=== PATIENT | male | born 1965 | race Caucasian/White ===

== ENCOUNTER 2017-03-11 03:34 | Inpatient (IN) | payer OTHER ==
[~2017-03-11] VITALS: Ht 188 cm; Wt 101.4 kg
[2017-03-11] VITALS (14 sets, daily range): BP systolic 125–179; BP diastolic 77–95; PULSE 62–93; RESP 14–25; TEMP 98.2–100.5; O2SAT 92–96
[2017-03-11] MEDS ORDERED: SODIUM CHLOR 0.9% 1000 ML INJ 1,000 ML IV SCH (03:45)
--- NOTE | 2017-03-11 03:52 | PD ---
HPI Chief Complaint: ENT Complaint Time Seen by Provider: 03:45 Travel History International Travel<30 days: No Contact w/Intl Traveler<30days: No Traveled to known affect area: No History of Present Illness HPI 51-year-old male complains of sore throat, difficulty in swallowing. Patient states that he started having sore throat 4 days ago. Patient states that he has increasing pain to the back of the throat and increasing difficulty in swallowing for the past 4 days. Patient denies any fever chills. Patient denies any chest pain or shortness of breath. Patient states that he has history of aneurysms resulting in right-sided facial drooping many years ago. Patient denies any abdominal pain. Patient denies any nausea vomiting diarrhea. Patient was seen at [facility] in [facility]. CT scan of the brain was reported to be normal. CT scan of the neck with IV contrast shows enlargement of the tonsil left greater than right, with peritonsillar abscess. ENT, Dr. Ferraro was contacted and advised patient to be transferred to [facility]. [facility] Past Medical History Hypertension: Yes Tetanus Vaccination: Unknown Influenza Vaccination: No Past Surgical History Other Surgery: Yes (BRAIN ANUERSYM) Social History Alcohol Use: No Tobacco Use: Yes (2PPD) Substance Use: Yes (MARIJUANA) Allergies-Medications (Allergen,Severity, Reaction): Coded Allergies: No Known Allergies (Unverified , 03/11/17) Reported Meds & Prescriptions Reported Meds & Active Scripts Active No Active Prescriptions or Reported Medications Review of Systems General / Constitutional: No: Fever Eyes: No: Visual changes HENT: Positive: Sore Throat, No: Headaches Cardiovascular: No: Chest Pain or Discomfort Respiratory: No: Shortness of Breath Gastrointestinal: No: Abdominal Pain Genitourinary: No: Dysuria Musculoskeletal: No: Pain Skin: No Rash Neurologic: No: Weakness Psychiatric: No: Depression Endocrine: No: Polydipsia Hematologic/Lymphatic: No: Easy Bruising Physical Exam Narrative GENERAL: Well-nourished, well-developed patient. SKIN: Focused skin assessment warm/dry. HEAD: Normocephalic. EYES: No scleral icterus. No injection or drainage. Throat: Soft tissue swelling edema left peritonsillar area. NECK: Supple, trachea midline. No JVD. Patient has left anterior cervical lymphadenopathy. No meningismus CARDIOVASCULAR: Regular rate and rhythm without murmurs, gallops, or rubs. RESPIRATORY: Breath sounds equal bilaterally. No accessory muscle use. GASTROINTESTINAL: Abdomen soft, non-tender, nondistended. MUSCULOSKELETAL: No cyanosis, or edema. BACK: Nontender without obvious deformity. No CVA tenderness. Neurologic exam: Patient has right-sided facial drooping from previous aneurysm problem. Otherwise no obvious focal neurological deficit. Data Data Last Documented VS Vital Signs Date Time Temp Pulse Resp B/P Pulse Ox O2 Delivery O2 Flow Rate FiO2 03/11/17 03:38 98.2 93 18 179/89 96 Orders Electrocardiogram (03/11/17 03:45) Complete Blood Count With Diff (03/11/17 03:45) Basic Metabolic Panel (Bmp) (03/11/17 03:45) Prothrombin Time / Inr (Pt) (03/11/17 03:45) Act Partial Throm Time (Ptt) (03/11/17 03:45) Chest, Single Ap (03/11/17 03:45) Iv Access Insert/Monitor (03/11/17 03:45) Ecg Monitoring (03/11/17 03:45) Oximetry (03/11/17 03:45) Sodium Chlor 0.9% 1000 Ml Inj (Ns 1000 M (03/11/17 03:45) MDM Medical Decision Making Medical Screen Exam Complete: Yes Emergency Medical Condition: Yes Differential Diagnosis Differential diagnosis including tonsillitis, peritonsillar abscess. Narrative Course 51-year-old male with sore throat, difficulty swallowing and peritonsillar abscess. Normal saline solution 1 25 cc an hour. Patient was given Unasyn 3 g IV and Decadron 10 mg IV for [facility]. Diagnosis Primary Impression: Peritonsillar abscess Admitting Information Admitting Physician Requests: Admit Scripts No Active Prescriptions or Reported Meds Stephen Storey MD Mar 11, 2017 03:52
[2017-03-11] MEDS ORDERED: NALOXONE HCL 0.4 MG/ML AMP IV PRN (04:00)
[2017-03-11] MEDS ORDERED: MAGNESIUM HYDROXIDE SUSP 30 ML CUP PO PRN (04:00)
[2017-03-11] MEDS ORDERED: ONDANSETRON HCL 4 MG/2 ML VIAL IVP PRN (04:00)
[2017-03-11] MEDS ORDERED: SODIUM CHLORIDE 0.9% FLUSH 10 ML FLUSH IV FLUSH PRN (04:00)
[2017-03-11] MEDS ORDERED: MORPHINE SULFATE 4 MG/ML INJ IV PUSH ONE (04:15)
[2017-03-11] MEDS ORDERED: ONDANSETRON HCL 4 MG/2 ML VIAL IV PUSH ONE (04:15)
--- NOTE | 2017-03-11 04:15 | RADRPT ---
EXAM DATE/TIME: 03/11/2017 03:46 [place] COMPARISON: No previous studies available for comparison. INDICATIONS : Shortness of breath and congestion for five days. MEDICAL HISTORY : Hypertension. SURGICAL HISTORY : None. ENCOUNTER: Initial ACUITY: 4 - 6 days PAIN SCORE: 0/10 LOCATION: Bilateral chest FINDINGS: A single view of the chest demonstrates the lungs to be symmetrically aerated without evidence of mas s, infiltrate or effusion. The cardiomediastinal contours are unremarkable. Osseous structures are intact. CONCLUSION: Normal examination. Everett Gallardo MD on March 11, 2017 at 4:13 Board Certified Radiologist. This report was verified electronically.
[2017-03-11 04:21] LABS: AUTOMATED NEUTROPHIL # 13.4 TH/MM3 (1.8-7.7); BASOPHIL % 0.3 % (0.0-2.0); EOSINOPHIL % 0.2 % (0.0-4.0); HEMATOCRIT 43.5 % (39.0-51.0); HEMO FLAGS DIFF FINAL; LYMPH % 9.6 % (9.0-44.0); LYMPHOCYTE # 1.6 TH/MM3 (1.0-4.8); MEAN CELL VOLUME 88.7 FL (80.0-100.0); MEAN CORPUSCULAR HEMOGLOBIN 29.8 PG (27.0-34.0); MEAN CORPUSCULAR HGB CONC 33.7 % (32.0-36.0); MONO % 9.2 % (0.0-8.0); NEUT % 80.7 % (16.0-70.0); PLATELET COUNT 208 TH/MM3 (150-450); RED BLOOD COUNT 4.91 MIL/MM3 (4.50-5.90); RED CELL DISTRIBUTION WIDTH 13.5 % (11.6-17.2); WHITE BLOOD COUNT 16.6 TH/MM3 (4.0-11.0)
[2017-03-11] MEDS: SODIUM CHLOR 0.9% 1000 ML INJ 1,000 ML IV SCH ×3 (04:30→19:38)
--- NOTE | 2017-03-11 04:31 | HHI.HP ---
[facility] No Primary Care Physician Admission Diagnosis peritonsillar abscess Diagnoses: (1) Peritonsillar abscess Chief Complaint: Inability to swallow Travel History International Travel<30 Days: No Contact w/Intl Traveler <30 Da: No Traveled to Known Affected Are: No History of Present Illness Mr. Koenig is a 51 year-old male with a history of intracranial hemorrhage and hypertension who presents to the emergency room in transfer from [facility] for evaluation of peritonsillar abscess and ENT consultation. According to the records, he received ampicillin 3 g and dexamethasone 10 mg at [facility]. The patient is seen in the emergency room and reports severe throat pain progressively worsening over the past week with worsening pain and inability to swallow or take in any nourishment over the past 2 days. Pain is exacerbated with swallowing and radiates to ear. He denies any fevers or chills but reports feeling hot alternating with feeling cold. White blood count in our ER is elevated at 16.6 with neutrophilia and monocytosis. Summary of imaging from [facility] ER: CT soft tissue neck with contrast 03/10/2017 at [facility] ER report reviewed and shows enlargement of the palate and 19 tonsils, left greater than right. Centrally hypodense 2.0 x 1.1 x 0.9 cm collection in the left palate team tonsil extending inferiorly along the lateral pharyngeal mucosa. Questionable tiny subcentimeter hypodense collection inferior to the larger collection in the palatine tonsil. Thickening of the pharyngeal mucosa asymmetric to the left with significant surrounding inflammation extending to the platysma and superiorly in the left parapharyngeal space. Probable reactive enlargement and inflammation involving the left submandibular gland. Probable reactive lymph nodes in the left level IIA location. Findings are concerning for acute pharyngitis/tonsillitis complicated by left tonsillar/ peritonsillar abscess. Right lateral pharyngeal wall at the level of the epiglottis a 8-9 mm hypodense lesion is again noted with slightly increased peripheral enhancement since prior study which may be reactive. Direct visualization is recommended by the radiologist at [facility]. CT head/brain without contrast performed 03/10/2017 at [facility] ER report reviewed and shows no mass effect, hemorrhage, or CT evidence for acute infarction. Mild to moderate chronic paranasal sinus mucosal disease most pronounced in the ethmoid air cells. Chest x-ray performed 03/10/2017 at [facility] ER report reviewed and shows no acute cardiopulmonary abnormality. Review of Systems Except as stated in HPI: all other systems reviewed are Neg Past Family Social History Past Medical History Hypertension Brain aneurysm - 15 years ago Hyperlipidemia . Past Surgical History Intracranial surgery . Reported Medications Reported Meds & Active Scripts Active No Active Prescriptions or Reported Medications . Allergies: Coded Allergies: No Known Allergies (Unverified , 03/11/17) Active Ordered Medications Current Medications Sodium Chloride 1,000 ml @ 125 mls/hr Q8H IV ; Start 03/11/17 at 03:45; Stop at 04:20; Status DC Sodium Chloride (NS 1000 ml Inj) 1,000 ml @ 100 mls/hr Q10H IV ; Start at 03:52 Sodium Chloride (NS Flush) 2 ml UNSCH PRN IV FLUSH FLUSH AFTER USING IV ACCESS ; Start 03/11/17 at 04:00 Sodium Chloride (NS Flush) 2 ml BID IV FLUSH ; Start 03/11/17 at 09:00 Ondansetron HCl (Zofran Inj) 4 mg Q6H PRN IVP NAUSEA OR VOMITING; Start at 04:00 Magnesium Hydroxide (Milk Of Magnesia Liq) 30 ml Q12H PRN PO CONSTIPATION; Start 03/11/17 at 04:00 Naloxone HCl 0.4 mg 0.4 mg UNSCH PRN IV SEE LABEL COMMENTS; Start 03/11/17 at 04:00 Ampicillin Sodium/ Sulbactam Sodium/ Sodium Chloride (Unasyn Inj/NS Inj) 100 ml @ 200 mls/hr Q6H IV ; Start 03/11/17 at 04:00 Dexamethasone Sodium Phosphate (Decadron Inj) 4 mg Q8HR IV PUSH ; Start at 06:00 Morphine Sulfate (Morphine Inj) 4 mg ONCE ONCE IV PUSH ; Start 03/11/17 at 04: 15; Stop 03/11/17 at 04:21; Status DC Ondansetron HCl (Zofran Inj) 4 mg ONCE ONCE IV PUSH ; Start 03/11/17 at 04:15; Stop 03/11/17 at 04:21; Status DC . Family History Hypertension, diabetes mellitus Social History Tobacco: smokes 2 PPD since age 15 y/o Alcohol: denies Illicit drugs: no IVDA, marijuana on occasion Physical Exam Vital Signs Vital Signs Date Time Temp Pulse Resp B/P Pulse Ox O2 Delivery O2 Flow Rate FiO2 03/11/17 04:19 96 21 03/11/17 04:13 96 Room Air 03/11/17 03:38 98.2 93 18 179/89 96 Physical Exam GENERAL: This is a disheveled but pleasant male patient in no apparent distress. SKIN: No rashes, ecchymoses or lesions. Cool and dry. Tattoos - at least one noted left upper arm. HEAD: Right facial droop. EYES: No scleral icterus. No injection or drainage. ENT: Nose without bleeding, purulent drainage. Left peritonsillar erythema and edema - airway patent. NECK: Trachea midline. No JVD or lymphadenopathy. CARDIOVASCULAR: Regular rate and rhythm without murmurs, gallops, or rubs. RESPIRATORY: Clear to auscultation. Breath sounds equal bilaterally. No wheezes , rales, or rhonchi. GASTROINTESTINAL: Abdomen soft, non-tender, nondistended. No guarding. MUSCULOSKELETAL: Extremities without clubbing, cyanosis, or edema. No calf tenderness. NEUROLOGICAL: Awake and alert. Right facial droop - hx of aneurysm, in no apparent distress. . Laboratory Laboratory Tests Test 03/11/17 03:49 White Blood Count 16.6 Red Blood Count 4.91 Hemoglobin 14.6 Hematocrit 43.5 Mean Corpuscular Volume 88.7 Mean Corpuscular Hemoglobin 29.8 Mean Corpuscular Hemoglobin 33.7 Concent Red Cell Distribution Width 13.5 Platelet Count 208 Mean Platelet Volume 8.3 Neutrophils (%) (Auto) 80.7 Lymphocytes (%) (Auto) 9.6 Monocytes (%) (Auto) 9.2 Eosinophils (%) (Auto) 0.2 Basophils (%) (Auto) 0.3 Neutrophils # (Auto) 13.4 Lymphocytes # (Auto) 1.6 Monocytes # (Auto) 1.5 Eosinophils # (Auto) 0.0 Basophils # (Auto) 0.0 CBC Comment DIFF FINAL Differential Comment Result Diagram: 03/11/17 0349 Imaging Last Impressions Chest X-Ray 03/11/17 0345 Signed Impressions: Service Date/Time: February 03:46 - CONCLUSION: Normal examination. Everett Gallardo MD . Assessment and Plan Problem List: (1) Peritonsillar abscess ICD Code: J36 Status: Acute Assessment and Plan Mr. Koenig is a 51 year-old male with a history of intracranial hemorrhage and hypertension who presents to the emergency room in transfer from [facility] for evaluation of peritonsillar abscess and ENT consultation. According to the records, he received ampicillin 3 g and dexamethasone 10 mg at [facility]. Peritonsillar Abscess - consult ENT - Dr. Ferraro - Antibiotic: Unasyn 3 g IV every 6 hours - Dexamethasone 4 mg IV every 8 hours - Morphine sulfate 4 mg IV every 3 hours as needed for pain - IV fluid hydration with normal saline at 100 cc per hour - Nothing by mouth. Currently patient is maintaining his aiw - Monitor closely in ICU until the patient has been able to be evaluated by ENT - ICU is necessary because the patient is at high risk for airway obstruction - case discussed with configuration management manager Dr. Easley and he is in agreement. - If there is any evidence of airway compromise, Milking Worker can be consulted. DVT prophylaxis - SCDs Written by Ghazala Benavides, acting as scribe for Dr. Lewis on 03/11/17 at 04:31. This note was transcribed by dorethaibROSALBA Amador. I, Dr. Beck Lewis personally performed the history, physical exam, and medical decision making; and confirmed the accuracy of the information in the transcribed note. Authenticated by Dr. Beck Lewis on 03/11/17 at 09:24. Discussed Condition With ER physician Dr. Storey, patient, NURSING PROFESSOR, Milking Worker Dr. Easley . Physician Certification 2 Midnight Certification Type: Admission for Inpatient Services Order for Inpatient Services The services are ordered in accordance with Medicare regulations or non- Medicare payer requirements, as applicable. In the case of services not specified as inpatient-only, they are appropriately provided as inpatient services in accordance with the 2-midnight benchmark. Estimated LOS (days): 3 days is the estimated time the patient will need to remain in the hospital, assuming treatment plan goals are met and no additional complications. Post-Hospital Plan: Not yet determined Ghazala Benavides Mar 11, 2017 04:31 Janis Lewis DO Mar 11, 2017 09:25
[2017-03-11 04:38] LABS: BICARBONATE 25.8 MEQ/L (21.0-32.0); POTASSIUM 4.2 MEQ/L (3.5-5.1)
[2017-03-11] MEDS: AMPICILLIN-SULBACTAM INJ 3 GM in SODIUM CHLORIDE 0.9% INJ 100 ML IV SCH ×4 (04:38→19:37)
[2017-03-11 04:39] LABS: APTT (PATIENT) 31.7 SEC (24.3-30.1); PROTHROMBIN TIME - PATIENT 11.4 SEC (9.8-11.6)
[2017-03-11] MEDS ORDERED: DEXAMETHASONE SOD PHOS 4 MG/ML VIAL IV PUSH SCH (06:00)
[2017-03-11] MEDS ORDERED: CHLORHEXIDINE GLUCONATE 2 % 1 PACK (2 CLOTHS)(extra cloths) TOPICAL PRN (06:00)
[2017-03-11] MEDS: SODIUM CHLORIDE 0.9% FLUSH 10 ML FLUSH IV FLUSH SCH ×2 (09:25→19:39)
[2017-03-11 10:17] LABS: BICARBONATE 24.6 MEQ/L (21.0-32.0); POTASSIUM 4.3 MEQ/L (3.5-5.1)
[2017-03-11] MEDS: MORPHINE SULFATE 4 MG/ML INJ IV PUSH PRN ×3 (11:24→19:37)
--- NOTE | 2017-03-11 13:59 | EKG ---
Date Performed: 03/11/2017 Time Performed: 04:23:41 PTAGE: 51 years EKG: Sinus rhythm NONSPECIFIC ST ELEVATION BORDERLINE ECG Cannot rule out old inferior DC. NO PREVIOUS TRACING DOCTOR: Kadeem Butcher Interpretating Date/Time 03/11/2017 13:58:22
[2017-03-11] MEDS: DEXAMETHASONE SOD PHOS 20 MG/5 ML VIAL IV PUSH SCH (18:24)
--- NOTE | 2017-03-11 18:47 | MH ---
cc: PIPER CASTRO DATE OF ADMISSION 03/11/2017 CHIEF COMPLAINT Left peritonsillar abscess. HISTORY OF PRESENT ILLNESS This is a 51-year-old male. 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 He was admitted more with an acute problem with tonsillitis and pain and pressure on the left side and developed left peritonsillar abscess 2 x 1 x 0.9 cm. He has been admitted on IV steroids and antibiotics with some improvement but has not completely resolved through the day today. PAST MEDICAL HISTORY No previous peritonsillar abscess. PHYSICAL EXAMINATION GENERAL: Well-developed, well-nourished male in no apparent distress. HEENT: Normocephalic, atraumatic. He has left facial paralysis longstanding. The nasal exam shows no lesion. Lips, oral mucosa and pharynx show no mass, but there is left peritonsillar abscess partially decompressed. NECK: Shows no other masses. ASSESSMENT AND PLAN Left peritonsillar abscess. He is on medical therapy. He may resolve fully but I have him on the operating schedule for incision and drainage of the abscess tomorrow to be sure that he clear. Most likely if he continues on steroids and antibiotics overnight and has drainage of the abscess tomorrow, he can be discharged Wednesday afternoon on Augmentin and a Medrol Dosepak. Thank you for allowing me to participate in his care. MD PETRA Daniels/ /6:16 PM /6:37 PM
[2017-03-12] VITALS (7 sets, daily range): BP systolic 120–155; BP diastolic 77–90; PULSE 60–78; RESP 9–24; TEMP 97.2–98.1; O2SAT 93–96
[2017-03-12] MEDS: DEXAMETHASONE SOD PHOS 20 MG/5 ML VIAL IV PUSH SCH ×3 (00:16→12:05)
[2017-03-12] MEDS: MORPHINE SULFATE 4 MG/ML INJ IV PUSH PRN ×2 (00:19→05:08)
[2017-03-12] MEDS ORDERED: LACTATED RINGER'S 1000 ML IV PRN (02:15)
[2017-03-12] MEDS ORDERED: INSULIN HUMAN REGULAR 1,000 UNITS/10 ML VIAL SQ PRN (02:15)
[2017-03-12] MEDS ORDERED: SODIUM CHLORID 0.9% 500 ML IV PRN (02:15)
[2017-03-12] MEDS ORDERED: CHLORHEXIDINE GLUCONATE 2 % 1 PACK (2 CLOTHS) TOPICAL PRN (02:15)
[2017-03-12] MEDS ORDERED: CHLORHEXIDINE GLUCONATE 2 % 1 PACK (2 CLOTHS)(taper/protocol) TOPICAL SCH (04:00)
[2017-03-12] MEDS: AMPICILLIN-SULBACTAM INJ 3 GM in SODIUM CHLORIDE 0.9% INJ 100 ML IV SCH ×2 (05:02→08:44)
[2017-03-12 06:53] LABS: AUTOMATED NEUTROPHIL # 12.7 TH/MM3 (1.8-7.7); BASOPHIL % 0.2 % (0.0-2.0); HEMATOCRIT 40.4 % (39.0-51.0); HEMO FLAGS DIFF FINAL; LYMPH % 5.5 % (9.0-44.0); LYMPHOCYTE # 0.8 TH/MM3 (1.0-4.8); MEAN CELL VOLUME 89.2 FL (80.0-100.0); MEAN CORPUSCULAR HEMOGLOBIN 29.6 PG (27.0-34.0); MEAN CORPUSCULAR HGB CONC 33.3 % (32.0-36.0); MONO % 2.5 % (0.0-8.0); NEUT % 91.8 % (16.0-70.0); PLATELET COUNT 241 TH/MM3 (150-450); RED BLOOD COUNT 4.53 MIL/MM3 (4.50-5.90); RED CELL DISTRIBUTION WIDTH 13.5 % (11.6-17.2); WHITE BLOOD COUNT 13.9 TH/MM3 (4.0-11.0)
[2017-03-12 07:08] LABS: ALKALINE PHOSPHATASE 107 U/L (45-117); ALT (GPT) 48 U/L (12-78); ANION GAP 8 MEQ/L (5-15); AST (GOT) 17 U/L (15-37); BICARBONATE 24.4 MEQ/L (21.0-32.0); BLOOD UREA NITROGEN 16 MG/DL (7-18); CHLORIDE 105 MEQ/L (98-107); GLOMERULAR FILTRATION RATE 83 ML/MIN (>89); SODIUM (NA) 137 MEQ/L (136-145); TOTAL BILIRUBIN ADULT 0.4 MG/DL (0.2-1.0)
[2017-03-12] MEDS: SODIUM CHLORIDE 0.9% FLUSH 10 ML FLUSH IV FLUSH SCH (08:45)
[2017-03-12] MEDS: SODIUM CHLOR 0.9% 1000 ML INJ 1,000 ML IV SCH (08:45)
[2017-03-12] MEDS ORDERED: fentaNYL CITRATE 250 MCG/5 ML AMP ONE (10:11)
--- NOTE | 2017-03-12 11:07 | MP ---
cc: PIPER CASTRO DATE OF SURGERY: 03/11/2017 INDICATIONS This is a 51-year male left peritonsillar abscess. He has been treated with IV therapies to undergo an incision and drainage of his peritonsillar abscess. PREOPERATIVE DIAGNOSIS Peritonsillar abscess Tonsillitis. POSTOPERATIVE DIAGNOSIS Peritonsillar abscess Tonsillitis. PROCEDURE: Incision, drainage, left peritonsillar abscess. SUMMARY The patient was brought to the operating room and placed in the supine position, placed under general anesthesia. In the usual fashion for this procedure, oral cavity exposed with retractor. The area of the left tonsil abscess had started some spontaneous drainage. The area was aspirated incision was created and yellowish pus was all removed. A culture was taken, he was suctioned completely cleared. He then had suction removed. He was awakened, extubated, and taken recovery in stable condition. MD PETRA Daniels/dougie /10:42 AM /10:46 AM
[2017-03-12] MEDS ORDERED: HYDR-3533 PO (11:23)
[2017-03-12] MEDS ORDERED: AUGM875T PO (11:23)
[2017-03-12] MEDS ORDERED: MEDR4PAK PO (11:23)
[2017-03-12] MEDS ORDERED: PROPOFOL 200 MG/20 ML AMP IV ONE (12:00)
[2017-03-12] MEDS ORDERED: ONDANSETRON HCL 4 MG/2 ML VIAL IV PUSH ONE (12:00)
--- NOTE | 2017-03-12 14:12 | HHI.DS ---
Discharge Summary Admission Date Mar 11, 2017 at 03:56 Discharge Date: Mar 12, 2017 Admitting Diagnosis peritonsillar abscess (1) Peritonsillar abscess ICD Code: J36 Diagnosis: Principal Procedures Tonsil I&D Brief History - From Admission Mr. Koenig is a 51 year-old male with a history of intracranial hemorrhage and hypertension who presents to the emergency room in transfer from [facility] for evaluation of peritonsillar abscess and ENT consultation. According to the records, he received ampicillin 3 g and dexamethasone 10 mg at [facility]. The patient is seen in the emergency room and reports severe throat pain progressively worsening over the past week with worsening pain and inability to swallow or take in any nourishment over the past 2 days. Pain is exacerbated with swallowing and radiates to ear. He denies any fevers or chills but reports feeling hot alternating with feeling cold. White blood count in our ER is elevated at 16.6 with neutrophilia and monocytosis. Summary of imaging from [facility] ER: CT soft tissue neck with contrast 03/10/2017 at [facility] ER report reviewed and shows enlargement of the palate and 19 tonsils, left greater than right. Centrally hypodense 2.0 x 1.1 x 0.9 cm collection in the left palate team tonsil extending inferiorly along the lateral pharyngeal mucosa. Questionable tiny subcentimeter hypodense collection inferior to the larger collection in the palatine tonsil. Thickening of the pharyngeal mucosa asymmetric to the left with significant surrounding inflammation extending to the platysma and superiorly in the left parapharyngeal space. Probable reactive enlargement and inflammation involving the left submandibular gland. Probable reactive lymph nodes in the left level IIA location. Findings are concerning for acute pharyngitis/tonsillitis complicated by left tonsillar/ peritonsillar abscess. Right lateral pharyngeal wall at the level of the epiglottis a 8-9 mm hypodense lesion is again noted with slightly increased peripheral enhancement since prior study which may be reactive. Direct visualization is recommended by the radiologist at [facility]. CT head/brain without contrast performed 03/10/2017 at [facility] ER report reviewed and shows no mass effect, hemorrhage, or CT evidence for acute infarction. Mild to moderate chronic paranasal sinus mucosal disease most pronounced in the ethmoid air cells. Chest x-ray performed 03/10/2017 at [facility] ER report reviewed and shows no acute cardiopulmonary abnormality. CBC/BMP: 03/12/17 0555 03/12/17 0555 Significant Findings Laboratory Tests Test 03/11/17 03/11/17 03/12/17 03:49 09:00 05:55 White Blood Count 16.6 TH/MM3 13.9 TH/MM3 (4.0-11.0) (4.0-11.0) Neutrophils (%) (Auto) 80.7 % 91.8 % (16.0-70.0) (16.0-70.0) Monocytes (%) (Auto) 9.2 % (0.0-8.0) Neutrophils # (Auto) 13.4 TH/MM3 12.7 TH/MM3 (1.8-7.7) (1.8-7.7) Monocytes # (Auto) 1.5 TH/MM3 (0-0.9) Activated Partial 31.7 SEC Thromboplast Time (24.3-30.1) Estimat Glomerular Filtration 71 ML/MIN (>89) 73 ML/MIN (>89) 83 ML/MIN (>89) Rate Random Glucose 109 MG/DL 113 MG/DL 132 MG/DL (74-106) (74-106) (74-106) Lymphocytes (%) (Auto) 5.5 % (9.0-44.0) Lymphocytes # (Auto) 0.8 TH/MM3 (1.0-4.8) Albumin 3.0 GM/DL (3.4-5.0) Imaging Last Impressions Chest X-Ray 03/11/17 4995 Signed Impressions: Service Date/Time: February 03:46 - CONCLUSION: Normal examination. Everett Gallardo MD PE at Discharge GENERAL: NAD SKIN: Warm and dry. HEAD: Normocephalic. EYES: No scleral icterus. No injection or drainage. NECK: Supple, trachea midline. No JVD or lymphadenopathy. Left sided swelling. CARDIOVASCULAR: Regular rate and rhythm without murmurs, gallops, or rubs. RESPIRATORY: Breath sounds equal bilaterally. No accessory muscle use. GASTROINTESTINAL: Abdomen soft, non-tender, nondistended. MUSCULOSKELETAL: No cyanosis, or edema. BACK: Nontender without obvious deformity. No CVA tenderness. Pt update on day of discharge Pain controlled. Felling better. Tolerating PO intake post op. Medically stable for discharge. patient desires discharge. Hospital Course Mr. Koenig is a 51 year old male. He reports health at baseline and came in for an enlarging left tonsil area. A peritonsillar abcess was discovered and he was treated this morning with I&D of the abcess. He is cleared for discharge by ENT and patient is desiring discharge. He will be treated with augmentin for one week, a medrol dose pack and PRN pain treatments. Medically stable for discharge to home today. Pt Condition on Discharge: Stable Discharge Disposition: Discharge Home Discharge Time: <= 30 minutes Discharge Instructions DIET: Follow Instructions for: As Tolerated, No Restrictions Activities you can perform: Regular-No Restrictions Follow up Referrals: Ear Nose Throat - 2 Weeks with [facility] New Medications: Amoxicillin-Clavulanate (Augmentin) 875-125 mg Tab 875 MG PO BID not for use in CrCl <30 ml/min. Infection #14 Ref 0 TAB Hydrocodone-Acetaminophen (Lortab) 5-325 Mg Tab 1 TAB PO Q6H PRN PAIN #20 Ref 0 TAB Methylprednisolone Dosepak (Medrol Dosepak) 4 Mg Dspk 4 MG PO DIRECTED Per Pharmacist direction #1 Ref 0 DSPK Shawn Mora MD Mar 12, 2017 14:12
== END 2017-03-12 12:25 | disposition home or self-care (01) | DRG 134 ==
LOC: NEPE 03:34 → NEDA 03:56 → HIMN 05:25
PROVIDERS: ADMIT Hospitalist; ATTEND Hospitalist
PROC: 0C9PXZX Drainage of Tonsils, External Approach, Diagnostic (ICD-10-PCS; principal; 2017-03-11)
DX: J03.90 Acute tonsillitis, unspecified (principal); I10 Essential (primary) hypertension; F17.210 Nicotine dependence, cigarettes, uncomplicated; E78.5 Hyperlipidemia, unspecified; F31.9 Bipolar disorder, unspecified; F20.9 Schizophrenia, unspecified; R29.810 Facial weakness
CPT/HCPCS: 71010; 80048; 80053; 85025; 85610; 85730; 86850; 86900; 86901; 87070; 87205; 87641; 93005; J0295; J1100; J2270; J2405; J3010; J7030